=== PATIENT | female | born 2000 | race Two or more races ===

== ENCOUNTER 2020-12-27 14:34 | Emergency (ER) | payer OTHER ==
[~2020-12-27] VITALS: Ht 147.3 cm; Wt 54.9 kg
== END 2020-12-27 17:31 | disposition home or self-care (01) ==
LOC: ER 14:34
DX: N93.8 Other specified abnormal uterine and vaginal bleeding (principal); Z33.1 Pregnant state, incidental

== ENCOUNTER 2020-12-29 15:10 | Emergency (ER) | payer OTHER ==
[~2020-12-29] VITALS: Ht 147.3 cm; Wt 54.9 kg
== END 2020-12-29 17:45 | disposition home or self-care (01) ==
LOC: ER 15:10
DX: O26.851 Spotting complicating pregnancy, first trimester (principal); Z3A.01 Less than 8 weeks gestation of pregnancy

== ENCOUNTER 2020-12-31 12:38 | Outpatient (CLI) | payer OTHER | END 2020-12-31 12:54 | disposition home or self-care (01) | LOC: SONOGRAMA 12:38 | PROVIDERS: ATTEND Specialist | DX: Z01.419 Encounter for gynecological examination (general) (routine) without abnormal findings (principal); O00.101 Right tubal pregnancy without intrauterine pregnancy ==

== ENCOUNTER 2020-12-31 14:56 | Outpatient (CLI) | payer OTHER | END 2020-12-31 15:03 | disposition home or self-care (01) | LOC: LAB 14:56 | PROVIDERS: ATTEND Specialist | DX: O00.101 Right tubal pregnancy without intrauterine pregnancy (principal) ==

== ENCOUNTER → 2020-12-31 | Emergency (ER) | payer OTHER ==
[~2020-12-31] VITALS: Ht 147.3 cm; Wt 55.3 kg
== END | disposition left against medical advice (07) ==
LOC: ER 14:01
DX: Z53.20 Procedure and treatment not carried out because of patient's decision for unspecified reasons (principal)

== ENCOUNTER 2021-01-03 12:07 | Outpatient (CLI) | payer OTHER | END 2021-01-03 15:00 | disposition home or self-care (01) | LOC: LAB 12:07 | PROVIDERS: ATTEND Specialist | DX: O00.10 Tubal pregnancy without intrauterine pregnancy (principal) ==

== ENCOUNTER 2021-01-03 15:15 | Emergency (ER) | payer OTHER ==
[~2021-01-03] VITALS: Ht 147.3 cm; Wt 55.3 kg
== END 2021-01-04 09:34 | disposition home or self-care (01) ==
LOC: ER 15:15
DX: R10.31 Right lower quadrant pain (principal); R42 Dizziness and giddiness; R10.2 Pelvic and perineal pain; Z03.818 Encounter for observation for suspected exposure to other biological agents ruled out

== ENCOUNTER 2021-01-06 07:54 | Inpatient (IN) | payer OTHER ==
[~2021-01-06] VITALS: Ht 147.3 cm; Wt 55.3 kg
== END 2021-01-07 14:32 | disposition home or self-care (01) | DRG 832 ==
LOC: ER 07:54 → SEC-K 08:55 → OB/GYN 08:55
PROVIDERS: ADMIT Specialist; ATTEND Specialist
PROC: BW4GZZZ Ultrasonography of Pelvic Region (ICD-10-PCS; principal; 2021-01-06)
DX: O00.80 Other ectopic pregnancy without intrauterine pregnancy (principal); O08.89 Other complications following an ectopic and molar pregnancy; Z3A.00 Weeks of gestation of pregnancy not specified; O09.90 Supervision of high risk pregnancy, unspecified, unspecified trimester; Z20.822 Contact with and (suspected) exposure to COVID-19

== ENCOUNTER 2021-01-14 12:26 | Outpatient (CLI) | payer OTHER | END 2021-01-14 12:31 | disposition home or self-care (01) | LOC: LAB 12:26 | PROVIDERS: ATTEND Specialist | DX: O00.10 Tubal pregnancy without intrauterine pregnancy (principal) ==

== ENCOUNTER 2021-01-21 15:27 | Outpatient (CLI) | payer OTHER | END 2021-01-21 15:41 | disposition home or self-care (01) | LOC: LAB 15:27 | PROVIDERS: ATTEND Specialist | DX: O00.01 Abdominal pregnancy with intrauterine pregnancy (principal) ==

== ENCOUNTER 2021-01-28 13:17 | Outpatient (CLI) | payer OTHER | END 2021-01-28 15:00 | disposition home or self-care (01) | LOC: LAB 13:17 | PROVIDERS: ATTEND Specialist | DX: O00.01 Abdominal pregnancy with intrauterine pregnancy (principal); O08.89 Other complications following an ectopic and molar pregnancy ==

== ENCOUNTER 2021-01-28 13:28 | Outpatient (CLI) | payer OTHER | END 2021-01-28 13:38 | disposition home or self-care (01) | LOC: SONOGRAMA 13:28 | PROVIDERS: ATTEND Specialist | DX: O00.01 Abdominal pregnancy with intrauterine pregnancy (principal) ==

== ENCOUNTER → 2021-02-04 10:32 | Outpatient (CLI) | payer OTHER | END | disposition home or self-care (01) | LOC: LAB 10:32 | PROVIDERS: ATTEND Specialist | DX: D50.8 Other iron deficiency anemias (principal) ==

== ENCOUNTER → 2021-02-06 11:48 | Outpatient (CLI) | payer OTHER | END | disposition home or self-care (01) | LOC: LAB 11:48 | PROVIDERS: ATTEND Specialist | DX: O00.01 Abdominal pregnancy with intrauterine pregnancy (principal) ==

== ENCOUNTER → 2021-02-06 | Outpatient (CLI) | payer OTHER | END | disposition home or self-care (01) | LOC: SONOGRAMA 12:46 → MAMO-SONO 02-18 10:30 | PROVIDERS: ATTEND Specialist | DX: O00.119 Unspecified tubal pregnancy with intrauterine pregnancy (principal) ==

== ENCOUNTER 2021-02-14 12:32 | Outpatient (CLI) | payer OTHER | END 2021-02-14 12:35 | disposition home or self-care (01) | LOC: LAB 12:32 | PROVIDERS: ATTEND Specialist | DX: O00.01 Abdominal pregnancy with intrauterine pregnancy (principal) ==

== ENCOUNTER 2021-02-21 11:06 | Outpatient (CLI) | payer OTHER ==
[2021-04-27] MEDS ORDERED: ACIDO FOLICO (22:25)
[2021-04-27] MEDS ORDERED: PRENATALES (22:26)
== END 2021-02-21 11:10 | disposition home or self-care (01) ==
LOC: LAB 11:06
PROVIDERS: ATTEND Specialist
DX: O01.1 Incomplete and partial hydatidiform mole (principal); D50.8 Other iron deficiency anemias

== ENCOUNTER → 2021-02-24 13:50 | Outpatient (CLI) | payer OTHER ==
[~2021-02-24 13:50] MED LIST: ACIDO FOLICO; PRENATALES
== END | disposition home or self-care (01) ==
LOC: LAB 13:50
PROVIDERS: ATTEND Specialist
DX: D50.9 Iron deficiency anemia, unspecified (principal)

== ENCOUNTER → 2021-03-04 12:06 | Outpatient (CLI) | payer OTHER | END | disposition home or self-care (01) | LOC: LAB 12:06 | PROVIDERS: ATTEND Specialist | DX: O08.1 Delayed or excessive hemorrhage following ectopic and molar pregnancy (principal) ==

== ENCOUNTER 2021-03-04 12:41 | Outpatient (CLI) | payer OTHER | END 2021-03-04 12:48 | disposition home or self-care (01) | LOC: SONOGRAMA 12:41 | PROVIDERS: ATTEND Specialist | DX: N83.01 Follicular cyst of right ovary (principal); R10.31 Right lower quadrant pain; R10.32 Left lower quadrant pain ==

== ENCOUNTER 2021-04-23 10:45 | Outpatient (CLI) | payer OTHER ==
[2021-04-27] MEDS ORDERED: ACIDO FOLICO (22:25)
[2021-04-27] MEDS ORDERED: PRENATALES (22:26)
== END 2021-04-23 10:48 | disposition home or self-care (01) ==
LOC: LAB 10:45
PROVIDERS: ATTEND Specialist
DX: N91.2 Amenorrhea, unspecified (principal)

== ENCOUNTER → 2021-04-27 | Emergency (ER) | payer OTHER ==
[~2021-04-27] VITALS: Ht 147.3 cm; Wt 51.7 kg
== END | disposition home or self-care (01) ==
LOC: ER 22:09
DX: M79.18 Myalgia, other site (principal); R10.2 Pelvic and perineal pain

== ENCOUNTER → 2021-04-30 11:36 | Outpatient (CLI) | payer OTHER ==
[~2021-04-30 11:36] MED LIST changes: +PROGESTERONE200 MG
== END | disposition home or self-care (01) ==
LOC: LAB 11:36
PROVIDERS: ATTEND Specialist
DX: O60.10X0 Preterm labor with preterm delivery, unspecified trimester, not applicable or unspecified (principal)

== ENCOUNTER 2021-05-02 11:24 | Outpatient (CLI) | payer OTHER ==
[~2021-05-02 11:24] MED LIST changes: -PROGESTERONE200 MG
== END 2021-05-02 11:33 | disposition home or self-care (01) ==
LOC: LAB 11:24
PROVIDERS: ATTEND Specialist
DX: O00.109 Unspecified tubal pregnancy without intrauterine pregnancy (principal)

== ENCOUNTER → 2021-05-06 14:26 | Outpatient (CLI) | payer OTHER ==
[~2021-05-06 14:26] MED LIST changes: +PROGESTERONE200 MG
== END | disposition home or self-care (01) ==
LOC: LAB 14:26
PROVIDERS: ATTEND Specialist
DX: O00.101 Right tubal pregnancy without intrauterine pregnancy (principal)

== ENCOUNTER → 2021-06-11 09:53 | Outpatient (CLI) | payer OTHER | END | disposition home or self-care (01) | LOC: LAB 09:53 | PROVIDERS: ATTEND Specialist | DX: Z34.01 Encounter for supervision of normal first pregnancy, first trimester (principal); Z03.818 Encounter for observation for suspected exposure to other biological agents ruled out; Z20.828 Contact with and (suspected) exposure to other viral communicable diseases ==

== ENCOUNTER 2021-06-18 05:52 | Emergency (ER) | payer OTHER ==
[~2021-06-18] VITALS: Ht 147.3 cm; Wt 51.3 kg
[~2021-06-18 05:52] MED LIST changes: -PROGESTERONE200 MG
[2021-06-18] MEDS ORDERED: PROGESTERONE200 MG (06:28)
== END 2021-06-18 14:22 | disposition home or self-care (01) ==
LOC: ER 05:52
DX: O21.0 Mild hyperemesis gravidarum (principal); K29.70 Gastritis, unspecified, without bleeding; R11.11 Vomiting without nausea; R10.9 Unspecified abdominal pain

== ENCOUNTER 2021-07-23 10:01 | Outpatient (CLI) | payer OTHER ==
[~2021-07-23 10:01] MED LIST changes: +PROGESTERONE200 MG
== END 2021-07-23 10:45 | disposition home or self-care (01) ==
LOC: PRENATAL 10:01
PROVIDERS: ATTEND Obstetrics & Gynecology Maternal & Fetal Medicine
DX: O35.1XX1 Maternal care for (suspected) chromosomal abnormality in fetus, fetus 1 (principal); O36.80X1 Pregnancy with inconclusive fetal viability, fetus 1; Z36.89 Encounter for other specified antenatal screening; Z3A.12 12 weeks gestation of pregnancy

== ENCOUNTER 2021-08-25 18:53 | Emergency (ER) | payer OTHER ==
[~2021-08-25] VITALS: Ht 147.3 cm; Wt 55.3 kg
[2021-08-25] MEDS ORDERED: PRENA1 TRUE CO1 EACH (19:27)
== END 2021-08-26 00:15 | disposition home or self-care (01) ==
LOC: ER 18:53
DX: Z34.90 Encounter for supervision of normal pregnancy, unspecified, unspecified trimester (principal); Z3A.16 16 weeks gestation of pregnancy

== ENCOUNTER → 2021-09-04 13:05 | Outpatient (CLI) | payer OTHER ==
[~2021-09-04 13:05] MED LIST changes: +PRENA1 TRUE CO1 EACH
== END | disposition home or self-care (01) ==
LOC: LAB 13:05
PROVIDERS: ATTEND Specialist
DX: Z34.92 Encounter for supervision of normal pregnancy, unspecified, second trimester (principal)

== ENCOUNTER 2021-09-30 16:12 | Outpatient (CLI) | payer OTHER | END 2021-09-30 17:04 | disposition home or self-care (01) | LOC: PRENATAL 16:12 | PROVIDERS: ATTEND Obstetrics & Gynecology Maternal & Fetal Medicine | DX: O35.0XX1 Maternal care for (suspected) central nervous system malformation in fetus, fetus 1 (principal); O35.3XX1 Maternal care for (suspected) damage to fetus from viral disease in mother, fetus 1; O98.512 Other viral diseases complicating pregnancy, second trimester; Z36.89 Encounter for other specified antenatal screening; Z3A.21 21 weeks gestation of pregnancy ==

== ENCOUNTER 2021-10-16 12:48 | Outpatient (CLI) | payer OTHER | END 2021-10-16 12:52 | disposition home or self-care (01) | LOC: LAB 12:48 | PROVIDERS: ATTEND Specialist | DX: Z34.92 Encounter for supervision of normal pregnancy, unspecified, second trimester (principal) ==

== ENCOUNTER → 2021-11-21 | Outpatient (CLI) | payer OTHER | END | disposition home or self-care (01) | LOC: OBS/DEL 00:56 | PROVIDERS: ATTEND Specialist | DX: O26.893 Other specified pregnancy related conditions, third trimester (principal); R10.2 Pelvic and perineal pain; Z3A.29 29 weeks gestation of pregnancy ==

== ENCOUNTER 2021-11-23 20:22 | Outpatient (CLI) | payer OTHER | END 2021-11-23 20:40 | disposition home or self-care (01) | LOC: NST 20:22 | PROVIDERS: ATTEND Specialist | DX: Z34.83 Encounter for supervision of other normal pregnancy, third trimester (principal) ==

== ENCOUNTER 2021-12-18 13:30 | Inpatient (IN) | payer OTHER ==
[~2021-12-18] VITALS: Ht 147.3 cm; Wt 3.2 kg
== END 2022-01-29 14:00 | disposition home or self-care (01) | DRG 788 ==
LOC: OB/GYN 01-26 04:31 → LDR 01-26 04:31 → OB/GYN 01-26 23:23
PROVIDERS: ADMIT Specialist; ATTEND Specialist
PROC: 4A1HXCZ Monitoring of Products of Conception, Cardiac Rate, External Approach (ICD-10-PCS; 2022-01-26)
PROC: 10D00Z1 Extraction of Products of Conception, Low, Open Approach (ICD-10-PCS; principal; 2022-01-26 21:30)
DX: O62.1 Secondary uterine inertia (principal); Z3A.38 38 weeks gestation of pregnancy; Z37.0 Single live birth; Z20.822 Contact with and (suspected) exposure to COVID-19

== ENCOUNTER 2022-01-06 14:19 | Outpatient (CLI) | payer OTHER | END 2022-01-06 15:56 | disposition home or self-care (01) | LOC: PRENATAL 14:19 | PROVIDERS: ATTEND Obstetrics & Gynecology Maternal & Fetal Medicine | DX: O26.849 Uterine size-date discrepancy, unspecified trimester (principal); O36.8199 Decreased fetal movements, unspecified trimester, other fetus ==

== ENCOUNTER 2023-03-14 15:06 | Emergency (ER) | payer OTHER ==
[~2023-03-14] VITALS: Ht 147.3 cm; Wt 52.6 kg
== END 2023-03-15 00:10 | disposition home or self-care (01) ==
LOC: ER 15:06
DX: K29.70 Gastritis, unspecified, without bleeding (principal); Z33.1 Pregnant state, incidental; Z3A.01 Less than 8 weeks gestation of pregnancy; Z91.018 Allergy to other foods

== ENCOUNTER → 2023-03-17 | Emergency (ER) | payer OTHER ==
[~2023-03-17] VITALS: Ht 147.3 cm; Wt 52.6 kg
[~2023-03-17] MED LIST changes: +ONDANSETRON ODT4 MG PO; +PEPCID40 MG PO
== END | disposition home or self-care (01) ==
LOC: ER 21:22
DX: O26.891 Other specified pregnancy related conditions, first trimester (principal); Z3A.01 Less than 8 weeks gestation of pregnancy; R10.13 Epigastric pain; Z91.018 Allergy to other foods

== ENCOUNTER 2023-03-31 05:42 | Emergency (ER) | payer OTHER ==
[~2023-03-31] VITALS: Ht 147.3 cm; Wt 54.4 kg
== END 2023-03-31 11:17 | disposition home or self-care (01) ==
LOC: ER 05:42
DX: O20.8 Other hemorrhage in early pregnancy (principal); Z3A.08 8 weeks gestation of pregnancy; Z91.018 Allergy to other foods

== ENCOUNTER 2023-07-19 01:24 | Outpatient (CLI) | payer OTHER ==
[2023-07-19 01:48] LABS: HEMATOCRIT 38.5 % (36.0-45.00); HEMOGLOBIN 12.8 g/dL (12.0-15.00); MEAN CELL VOLUME 90.6 fL (80.00-100.00); MEAN CORPUSCULAR HGB CONC 33.1 g/dl (32.0-36.0); PLATELET COUNT 166 K/uL (150-450); RED BLOOD COUNT 4.25 M/uL (4.00-6.00); RED CELL DISTRIBUTION WIDTH 12.2 % (11.5-14.5)
== END 2023-07-19 17:09 | disposition home or self-care (01) ==
LOC: OBS/DEL 01:24
PROVIDERS: ATTEND Specialist
DX: O26.892 Other specified pregnancy related conditions, second trimester (principal); E86.0 Dehydration; M54.89 Other dorsalgia; Z3A.23 23 weeks gestation of pregnancy; Z20.822 Contact with and (suspected) exposure to COVID-19

== ENCOUNTER 2023-09-29 18:48 | Inpatient (IN) | payer OTHER ==
[~2023-09-29] VITALS: Ht 147.3 cm; Wt 1.8 kg
[2023-09-29 19:22] LABS: HEMATOCRIT 33.6 % (36.0-45.00); HEMOGLOBIN 11.1 g/dL (12.0-15.00); MEAN CELL VOLUME 81.9 fL (80.00-100.00); MEAN CORPUSCULAR HEMOGLOBIN 27.1 pg (27.00-32.0); MEAN CORPUSCULAR HGB CONC 33.1 g/dl (32.0-36.0); PLATELET COUNT 194 K/uL (150-450); RED CELL DISTRIBUTION WIDTH 13.3 % (11.5-14.5)
[2023-09-29 19:23] LABS: PH,URINE 6.5 (5.0-8.0); URINE APPEARANCE Cloudy; URINE BILIRRUBIN Negative (NEGATIVE); URINE BLOOD Negative; URINE COLOR Yellow; URINE LEUKOCYTE Negative; URINE NITRATE Negative; URINE PROTEIN Trace (NEGATIVE)
[2023-09-29 19:27] LABS: URINE BACTERIA 734.5 uL (0.0-1933); URINE RBC 6.8 uL (0.0-20.8); URINE WBC 8.9 uL (0.0-23.2)
[2023-09-29 19:52] LABS: URINE EPITHELIAL CELLS > 201.7 uL (0.0-38.8); URINE GLUCOSE 250 MG/DL (NEGATIVE)
[2023-09-30 10:13] LABS: INR 0.96; PARTIAL THROMBOPLASTIN TIME 26.5 SECONDS (22.0-34.0); PROTHROMBIN TIME 10.1 SECONDS (9.0-11.5)
[2023-09-30 10:31] LABS: ALBUMIN 2.2 gm/dL (3.4-5.0); BILIRUBIN TOTAL 0.34 mg/dL (0.3-1.2); CALCIUM 8.1 mg/dL (8.5-10.1); CREATININE SERUM 0.4 mg/dL (0.55-1.02); GFR 196.1; GLOBULINA 3.4 G/DL (2.4-3.5); POTASSIUM 3.04 mEq/L (3.5-5.1); TOTAL PROTEIN 5.6 gm/dL (6.4-8.2)
[2023-09-30 23:09] LABS: HEMATOCRIT 31.5 % (36.0-45.00); MEAN CELL VOLUME 81.6 fL (80.00-100.00); MEAN CORPUSCULAR HGB CONC 33.2 g/dl (32.0-36.0); PLATELET COUNT 182 K/uL (150-450); RED BLOOD COUNT 3.86 M/uL (4.00-6.00); RED CELL DISTRIBUTION WIDTH 13.3 % (11.5-14.5)
[2023-09-30 23:44] LABS: HEMOGLOBIN 10.4 g/dL (12.0-15.00); MEAN CORPUSCULAR HEMOGLOBIN 26.9 pg (27.00-32.0)
[2023-10-01 14:43] LABS: ABG PH 7.361 (7.35-7.45); ABG pCO2 42.6 mmHg (35-45); BASE EXCESS -1.8 mmol/l; BICARBONATE 23.6 mmol/l (23-25); SaO2 67.9 %; Tco2 24.9 mmol/l; o2 21 %
[2023-10-01 14:44] LABS: ABG PO2 37.2 mmHg (80-100)
[2023-10-01 19:23] LABS: HEMATOCRIT 32.4 % (36.0-45.00); HEMOGLOBIN 10.6 g/dL (12.0-15.00); MEAN CELL VOLUME 80.8 fL (80.00-100.00); MEAN CORPUSCULAR HEMOGLOBIN 26.5 pg (27.00-32.0); MEAN CORPUSCULAR HGB CONC 32.8 g/dl (32.0-36.0); PLATELET COUNT 205 K/uL (150-450); RED BLOOD COUNT 4.01 M/uL (4.00-6.00); RED CELL DISTRIBUTION WIDTH 13.6 % (11.5-14.5)
== END 2023-10-04 16:16 | disposition home or self-care (01) | DRG 783 ==
LOC: OBS/DEL 18:48 → LDR 09-30 08:57 → OB/GYN 09-30 08:57 → O/R 10-01 13:41 → OB/GYN 10-01 15:27
PROVIDERS: Obstetrics & Gynecology; ADMIT Specialist; ATTEND Specialist
PROC: 4A1HXCZ Monitoring of Products of Conception, Cardiac Rate, External Approach (ICD-10-PCS; 2023-09-30)
PROC: BT43ZZZ Ultrasonography of Bilateral Kidneys (ICD-10-PCS; 2023-09-30)
PROC: BY4FZZZ Ultrasonography of Third Trimester, Single Fetus (ICD-10-PCS; 2023-09-30)
PROC: 0UB70ZZ Excision of Bilateral Fallopian Tubes, Open Approach (ICD-10-PCS; 2023-10-01)
PROC: BY4FZZZ Ultrasonography of Third Trimester, Single Fetus (ICD-10-PCS; 2023-10-01)
PROC: BU4CZZZ Ultrasonography of Uterus and Ovaries (ICD-10-PCS; 2023-10-01)
PROC: 10D00Z1 Extraction of Products of Conception, Low, Open Approach (ICD-10-PCS; principal; 2023-10-01 10:00)
DX: O36.8130 Decreased fetal movements, third trimester, not applicable or unspecified (principal); O60.14X0 Preterm labor third trimester with preterm delivery third trimester, not applicable or unspecified; O34.211 Maternal care for low transverse scar from previous cesarean delivery; Z3A.34 34 weeks gestation of pregnancy; Z37.0 Single live birth; Z20.822 Contact with and (suspected) exposure to COVID-19; Z30.2 Encounter for sterilization

== ENCOUNTER 2025-06-22 09:03 | Emergency (ER) | payer OTHER ==
[~2025-06-22] VITALS: Ht 147.3 cm; Wt 56.2 kg
[2025-06-22] MEDS ORDERED: FAMOtidine 10 MG/ML (4ML VIAL) IV ONE (09:45)
[2025-06-22] MEDS ORDERED: ONDANSETRON HCL 2 MG/ML VIAL IV ONE (09:45)
[2025-06-22] MEDS ORDERED: 0.9 % SODIUM CHLORIDE 1,000 ML IV ONE (09:45)
[2025-06-22 10:31] LABS: BASO % 0.7 % (0.1-1.2); EOS # 0.14 (0.04-0.54); EOS % 2.1 % (0.7-7.0); LYMPH # 1.75 (1.18-3.74); LYMPH % 26.0 % (19.3-53.1); MEAN PLATELET VOLUME 11.70 fl (9.4-12.4); MONO # 0.42 (0.24-0.82); MONO % 6.2 % (4.7-12.5); NEUT # 4.36 (1.56-6.13); NEUT % 64.9 % (34.0-71.1); RED CELL DISTRIBUTION WIDTH 12.1 % (11.6-14.4)
[2025-06-22 11:01] LABS: ALT/SGPT 32 U/L (12-78); AST/SGOT 9 U/L (15-37); BILIRUBIN TOTAL 1.23 mg/dL (0.3-1.2); BUN CREA RATIO 20 (7.0-25.0); CREATININE SERUM 0.69 mg/dL (0.55-1.02); GFR 103.66; GLOBULINA 4.1 G/DL (2.4-3.5); GLUCOSE FASTING 63 mg/dL (65-100); OSMOLALITY SERUM 274 MOSM/KG (275-295)
[2025-06-22 11:02] LABS: HCG QUANTITATIVE < 1 mUI/mL (1-3)
[2025-06-22 11:23] LABS: COVID-19 AG NEGATIVE (NEGATIVE)
[2025-06-22 12:31] LABS: URINE APPEARANCE Clear; URINE BILIRRUBIN Negative (NEGATIVE); URINE BLOOD Negative; URINE COLOR Yellow; URINE GLUCOSE Negative (NEGATIVE); URINE LEUKOCYTE Negative; URINE NITRATE Negative; URINE PROTEIN Negative (NEGATIVE); URINE UROBILINOGEN 1.0 E.U./dl
[2025-06-22 12:32] LABS: URINE BACTERIA 1909.2 uL (0.0-1933); URINE EPITHELIAL CELLS 61.3 uL (0.0-38.8); URINE RBC 5.8 uL (0.0-20.8); URINE WBC 2.7 uL (0.0-23.2)
[2025-06-22 12:34] LABS: URINE CAST 0.00 uL (0.0-1.40); URINE KETONE >=160 (NEGATIVE)
[2025-06-22] MEDS ORDERED: PEPCID AC20 MG PO (12:50)
[2025-06-22] MEDS ORDERED: ZOFRAN8 MG PO (12:50)
== END 2025-06-22 13:07 | disposition home or self-care (01) ==
LOC: ER 09:03
PROVIDERS: General Practice
DX: K52.89 Other specified noninfective gastroenteritis and colitis (principal); Z20.822 Contact with and (suspected) exposure to COVID-19; Z91.018 Allergy to other foods

== ENCOUNTER → 2025-10-12 | Emergency (ER) | payer OTHER ==
[~2025-10-12] MED LIST changes: +FAMOTIDINE/PF 20 MG/2 ML VIAL ONE; +KETOROLAC TROMETHAMINE 30 MG VIAL ONE; +METHYLPREDNISOLONE SOD SUCC 125 MG VIAL ONE; +PEPCID AC20 MG PO; +PRILOSEC OTC20 MG PO; +WATER FOR INJ.,BACTERIOSTATIC 30 ML VIAL IJ ONE; +ZOFRAN8 MG PO
== END | disposition left against medical advice (07) ==
LOC: ER 13:03
DX: Z53.21 Procedure and treatment not carried out due to patient leaving prior to being seen by health care provider (principal)

== ENCOUNTER 2025-10-13 22:56 | Emergency (ER) | payer OTHER ==
[~2025-10-13] VITALS: Ht 147.3 cm; Wt 52.6 kg
[~2025-10-13 22:56] MED LIST changes: -FAMOTIDINE/PF 20 MG/2 ML VIAL ONE; -KETOROLAC TROMETHAMINE 30 MG VIAL ONE; -METHYLPREDNISOLONE SOD SUCC 125 MG VIAL ONE; -PRILOSEC OTC20 MG PO; -WATER FOR INJ.,BACTERIOSTATIC 30 ML VIAL IJ ONE
[2025-10-14] MEDS ORDERED: FAMOTIDINE/PF 20 MG/2 ML VIAL IV STA (01:19)
[2025-10-14] MEDS ORDERED: KETOROLAC TROMETHAMINE 30 MG VIAL IM STA (01:19)
[2025-10-14] MEDS ORDERED: METHYLPREDNISOLONE SOD SUCC 125 MG VIAL IM STA (01:19)
[2025-10-14 02:37] LABS: BASO % 0.2 % (0.1-1.2); EOS # 0.00 (0.04-0.54); EOS % 0.0 % (0.7-7.0); LYMPH # 0.60 (1.18-3.74); LYMPH % 10.9 % (19.3-53.1); MEAN PLATELET VOLUME 11.60 fl (9.4-12.4); MONO # 0.37 (0.24-0.82); MONO % 6.7 % (4.7-12.5); NEUT # 4.51 (1.56-6.13); NEUT % 81.7 % (34.0-71.1); RED CELL DISTRIBUTION WIDTH 12.2 % (11.6-14.4)
[2025-10-14 02:52] LABS: BUN CREA RATIO 16.0 (7.0-25.0); CREATININE SERUM 0.7 mg/dL (0.55-1.02); GFR 101.15; GLUCOSE FASTING 131.0 mg/dL (65-100); OSMOLALITY SERUM 281.0 MOSM/KG (275-295)
[2025-10-14 05:44] LABS: COVID-19 AG NEGATIVE (NEGATIVE)
[2025-10-14 08:11] LABS: BASO % 0.1 % (0.1-1.2); EOS # 0.00 (0.04-0.54); EOS % 0.0 % (0.7-7.0); LYMPH # 0.79 (1.18-3.74); LYMPH % 11.7 % (19.3-53.1); MEAN PLATELET VOLUME 12.20 fl (9.4-12.4); MONO # 0.33 (0.24-0.82); MONO % 4.9 % (4.7-12.5); NEUT # 5.61 (1.56-6.13); NEUT % 82.7 % (34.0-71.1); RED CELL DISTRIBUTION WIDTH 12.4 % (11.6-14.4)
[2025-10-14 08:15] LABS: URINE APPEARANCE Clear; URINE BILIRRUBIN Negative (NEGATIVE); URINE BLOOD Negative; URINE COLOR Yellow; URINE GLUCOSE Negative (NEGATIVE); URINE KETONE 15 (NEGATIVE); URINE LEUKOCYTE Negative; URINE NITRATE Negative; URINE PROTEIN Trace (NEGATIVE); URINE UROBILINOGEN 1.0 E.U./dl
[2025-10-14 08:19] LABS: URINE EPITHELIAL CELLS 25.7 uL (0.0-38.8); URINE RBC 6.3 uL (0.0-20.8); URINE WBC 9.7 uL (0.0-23.2)
[2025-10-14 08:36] LABS: URINE CAST 0.00 uL (0.0-1.40)
[2025-10-14] MEDS ORDERED: PRILOSEC OTC20 MG PO (09:56)
[2025-10-14] MEDS ORDERED: PEPCID AC20 MG PO (09:56)
== END 2025-10-14 10:14 | disposition home or self-care (01) ==
LOC: ER 22:56
PROVIDERS: General Practice
DX: B34.8 Other viral infections of unspecified site (principal); J11.1 Influenza due to unidentified influenza virus with other respiratory manifestations; D69.6 Thrombocytopenia, unspecified; Z20.822 Contact with and (suspected) exposure to COVID-19; Z91.018 Allergy to other foods